=== PATIENT | female | born 1945 | race Caucasian/White ===

== ENCOUNTER 2025-07-20 11:41 | Outpatient (REF) | payer MEDICARE, OTHER, SELFPAY ==
--- NOTE | ~2025-07-20 | XR_ITS ---
EXAMINATION: XR HAND, LEFT CLINICAL INFORMATION: M79.642 - Pain in left hand COMPARISON: None available. TECHNIQUE: PA, lateral, and oblique views of the left hand. FINDINGS: There is mild narrowing of DIP joints with small marginal osteophytes involving the second and third digits, IP joint of the thumb, and first CMC joint. 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 Vague linear lucency in the radial base of the second metacarpal is probably related to trabecular pattern. There is an oblique fracture involving the middle third diaphysis of the fourth metacarpal. There is a small simple. Lucency through the palmar cortex of the third metacarpal diaphysis is probably a vascular channel. XR/XR hand LT min 3V IMPRESSION: There is an acute oblique fracture involving the proximal metaphysis and diaphysis of the fourth metacarpal. Electronically signed by: Pedro Patel MD 07/20/2025 01:01 PM EST
== END 2025-07-20 11:42 | disposition home or self-care (01) ==
LOC: HO.HOSX 11:41
PROVIDERS: Visit Provider Orthopaedic Surgery
DX: S62.325A Displaced fracture of shaft of fourth metacarpal bone, left hand, initial encounter for closed fracture (principal); S42.001A Fracture of unspecified part of right clavicle, initial encounter for closed fracture; W10.9XXA Fall (on) (from) unspecified stairs and steps, initial encounter; Y93.9 Activity, unspecified; Y92.89 Other specified places as the place of occurrence of the external cause; Y99.9 Unspecified external cause status
CPT/HCPCS: 26600; 73130; 99202

== ENCOUNTER 2025-07-20 12:30 | Outpatient (AMB) | payer MEDICARE, OTHER, SELFPAY ==
--- NOTE | 2025-07-20 12:49 | A.OFFVIS_ITS ---
Vital Signs 07/20/25 12:51 Height 5 ft 5.5 in Weight 134 lb BMI 22.0 Intake Visit Reasons: ED FU- Left hand (pinky and ring finger fracture) Intake Note: Delores is a 79 year old Left hand dominant male who presents today as a New Patient with complaints of Left Hand Pain. Patient reports that she had a fall on 07/18/26 - she fell down her cellar stairs. After the fall she was seen at [facility] in [place] due to concerns of Left Hand Pain. She was placed in a velcro wrist splint for a Left 4th Metacarpal Fracture. She also has a Right Clavicle Fracture but does not have an appointment booked for this yet. Allergies No Known Allergies (No Known Allergies*) Allergy (Unverified 07/20/25 12:57) HPI HPI ED FU- Left hand (pinky and ring finger fracture): Details: delores is a 79 year old left hand dominant woman who presents for a left hand fracture, S/P fall, DOI: 07/18/25. She was seen at [facility] in [place] and given a velcro wrist splint for a 4th metacarpal fracture. She complains of only mild pain in her left hand with ROM. She says she also has a right clavicle fracture and will be seen later this week by ADELFO Vela for this. [facility] Surgical History (Updated 07/20/25 @ 13:03 by Cintia Stone [facility]) History of spinal surgery Hx of cholecystectomy History of bunionectomy History of nasal surgery History of tubal ligation Hx of appendectomy History of cataract surgery Review of Systems Const All systems reviewed & are unremarkable except as noted in HPI and below Physical Exam Vital Signs: BMI result Body Mass Index 22.0 Const General: cooperative, healthy appearing and no acute distress Orientation/consciousness: patient oriented x3 HEENT Head: Yes normocephalic and Yes atraumatic Eyes EOM: EOMs intact bilaterally Resp Effort & Inspection: normal respiratory effort and able to speak in complete sentences Cardio Jugular venous distension: no JVD Skin General skin exam: turgor normal Rashes: no rashes Neuro General: patient oriented x3 Extrem Other: Evaluation of Left Upper Extremity: The patient is alert, oriented, and in no acute distress Neuro: Median, Ulnar, Radial nerves motor and sensory intact and sensation is normal to the tips of all digits Vascular: Cap refill brisk ROM: With encouragement she can make a fist and extend all her digits no rotational mal-alignment Skin: No lacerations or abrasions. General: No Erythema or evidence of infection. Mild-moderate swelling Dorsal & volar ecchymosis Radiographs: 3 views of the left hand were taken and viewed by me today in clinic. They show an oblique 4th metacarpal shaft fracture with a small amount of shortening. Psych Appearance: grossly normal Affect: normal affect Attitude: cooperative Office Procedures AMB Fracture Care Details: Fracture care metacarpal fracture 20238 Fracture Billing Code: Fracture Billing Code Assessment & Plan Assessment & Plan (1) Fracture of shaft of fourth metacarpal bone of left hand: Code(s): S62.325A - Displaced fracture of shaft of fourth metacarpal bone, left hand, initial encounter for closed fracture Category: Medical (2) Fracture of right clavicle: Code(s): S42.001A - Fracture of unspecified part of right clavicle, initial encounter for closed fracture Category: Medical Plan Assessment & Plan: 1. Left 4th metacarpal shaft fracture From a fall, DOI: 07/18/25 I educated her about this condition I discussed operative and non-operative treatment options We will manage this conservatively, and she is in agreement I discussed activity modifications, she is to lift nothing heavier than a cellphone for the next 6 weeks. They should also avoid any heavy impact activities, falls, or sports activities for the next 8 weeks She will perform gentle ROM exercises at home, while in her splint She will continue to wear her velcro splint like a cast except for showering for the next 3-4 weeks. She will yamilet-tape her middle & ring fingers together for the next 3-4 weeks She will follow up in 3-4 weeks, with X-rays, 3V L hand, OOP 2. Right clavicle fracture From a fall, DOI: 07/18/25 She is scheduled to be seen by ADELFO Vela on 07/22/25 for this Scribed for Cydney Choi MD by Mynro Francois, medical staff credentialing coordinator, on 07/20/25 at 1:20 PM, EST. Orders: Orders XR hand LT min 3V Today M79.642 - Pain in left hand Coding Level of Care Code New Pt Level 4 (58443) Diagnoses Fracture of shaft of fourth metacarpal bone of left hand S62.325A Fracture of right clavicle S42.001A CPT Codes Fracture Care - Fracture Billing Code: Fracture Billing Code ([id number])
[2025-07-20 12:51] VITALS: BMI 22.0
--- OUTSIDE RECORDS SUMMARY | 2025-07-20 16:19 | XMS_ITS ---
Author Name [facility] Organization Unknown Encounters Encounter Type Encounter Reason Primary Diagnosis Location Date Ambulatory [facility] 06/02/2024 Care Team Organization Name Specialty Phone Email Start Date End Da te [facility] Diane Carlisle Primary Care 01/15/2025 [facility] 2024 [facility] Vanda Ardon Primary Care 02/20/2024 [facility] Vanda Ardon Primary Care 12/10/2022
--- OUTSIDE RECORDS SUMMARY | 2025-07-20 16:19 | XMS_ITS | Patient Health Record ---
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 Occupation: retired Section Notes: Nonsmoker x 2 months; no sig . alcohol Problems Problem Type SNOMED Code ICD Code Onset Dates Problem Status W/U Status Risk Notes Problem Colon cancer screening (295622344) Colon cancer screening (V76.51) Active confirmed Problem Chronic antral gastritis (16900019) Chronic antral gastritis (535.10) Active confirmed Plan Of Treatment Future Test Test Name Order Date COLONOSCOPY 08/07/2012 Insurance Providers Payer Name Payer Address Payer Phone Subscriber Number Group Number Insured Name Patient Relationship to Insured Coverage Start Date Coverage End Date MEDICARE OF [place] [address] [place] [address] [id number] EVA CORDON Self - patient is the insured [facility] [address] [place] [address] [phone] [id number] EVA CORDON Self - patient is the insured Medical (General) History Medical History History ICD Code 5-3-2009 upperendoscopy-inte stinal metaplasia, but no adenomatous changes as had been seen in 1997; 2009 biopsies neg. for Hpylori gastritis with H. pylori-s/p antibiotic treatment hiatal hernia Denies NC,DM,CVA,Lung disease,renal dise ase HTN Hyperlipidemia Surgical History Surgery Date(Month/Year) uterine suspension appendectomy tubal ligation cholecystectomy L3 disc surgery
--- OUTSIDE RECORDS SUMMARY | 2025-07-20 16:19 | XMS_ITS | Patient Health Record ---
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 Name Role Phone LIAM ARDON Primary Care Provider MYRON MCCARTY Unavailable [phone] Allergies Allergen (clinical drug ingredient) Drug/Non Drug Allergy documented on EMR Reaction Allergy Type Onset Date Status Ground Mold (uncoded) Unknown Allergy Active Results Component Value Reference Range Flag Notes Vitamin [id number] Reviewed date:06/22/2025 09:47:38 AM Interpretation: Performing Lab:[facility], [address] [facility], Phone - [phone], Director - Leilani Notes/Report: Vitamin B12 441 644-4797 pg/mL Vitamin D, [id number] Reviewed date:06/22/2025 09:47:38 AM Interpretation: Performing Lab:[facility] [place], [address] [facility], [place], Phone - [phone], Director - Leilani Notes/Report: Vitamin D, 25-Hydroxy 66.7 30.0-100.0 ng/mL Vitamin D deficiency has been defined by the [employer] of Medicine and an Endocrine Society practice guideline as a level of serum 25-OH vitamin D less than 20 ng/mL (1,2). The Endocrine Society went on to further define vitamin D insufficiency as a level between 21 and 29 ng/mL (2). 1. IOM ([employer] of Medicine). 2010. Dietary reference intakes for calcium and D. [place]: The National Academies Press. 2. Sidney LIN, Caesar STONER, Paloma GREEN, et al. Evaluation, treatment, and prevention of vitamin D deficiency: an Endocrine Society clinical practice guideline. JCEM. 2010; 96(7):1911-30. Hemoglobin [id number] Reviewed date:06/22/2025 09:47:38 AM Interpretation: Performing Lab:[facility] [place], [address] [place] [address], Phone - [phone], Director - Leilani Notes/Report: Hemoglobin A1c 5.8 4.8-5.6 % H . Prediabetes: 5.7 - 6.4 Diabetes: >6.4 Glycemic control for adults with diabetes: <7.0 Urinalysis, Complete-[id number] Reviewed date:06/22/2025 09:47:38 AM Interpretation: Performing Lab:[facility] [place], [address] [place] [address], Phone - [phone], Director - Leilani Notes/Report: Specific [place] 1.022 1.005-1.030 pH 5.5 5.0-7.5 Urine-Color Yellow Yellow Appearance Clear Clear WBC Esterase 2+ Negative A Protein Negative Negative/Trace Glucose Negative Negative Ketones Negative Negative Occult Blood Negative Negative Bilirubin Negative Negative Urobilinogen,Semi-Qn 1.0 0.2-1.0 mg/dL Nitrite, Urine Negative Negative Microscopic Examination See below: M icroscopic was indicated and was performed. WBC 0-5 0 - 5 /hpf RBC 0-2 0 - 2 /hpf Epithelial Cells (non renal) 0-10 0 - 10 /hpf Casts None seen None seen /lpf Bacteria None seen None seen/Few CBC With Differential/Platel et-[id number] Reviewed date:06/22/2025 09:47:38 AM Interpretation: Performing Lab:[facility] [place], [address] [place] [address], [place], Phone - [phone], Director - Leilani Notes/Report: WBC 5.7 3.4-10.8 x10E3/uL RBC 4.35 3.77-5.28 x10E6/uL Hemoglobin 13.5 11.1-15.9 g/dL Hematocrit 41.4 34.0-46.6 % MCV 95 79-97 fL MCH 31.0 26.6-33.0 pg MCHC 32.6 31.5-35.7 g/dL RDW 12.1 11.7-15.4 % Platelets 183 150-450 x10E3/uL Neutrophils 69 Not Estab. % Lymphs 21 Not Estab. % Monocytes 7 Not Estab. % Eos 2 Not Estab. % Basos 1 Not Estab. % Neutrophils (Absolute) 4.0 1.4-7.0 x10E3/uL Lymphs (Absolute) 1.2 0.7-3.1 x10E3/uL Monocytes(Absolute) 0.4 0.1-0.9 x10E3/uL Eos (Absolute) 0.1 0.0-0.4 x10E3/uL Baso (Absolute) 0.1 0.0-0.2 x10E3/uL Immature Granulocytes 0 Not Estab. % Immature Grans (Abs) 0.0 0.0-0.1 x10E3/uL Lipid Panel-[id number] Reviewed date:06/22/2025 09:47:38 AM Interpretation: Performing Lab:[facility], [address] [place] [address], Phone - [phone], Director - MDJoy Notes/Report: Cholesterol, Total 164 100-199 mg/dL Triglycerides 80 0-149 mg/dL HDL Cholesterol 67 >39 mg/dL VLDL Cholesterol Pradip 15 5-40 mg/dL LDL Chol Calc ([facility]) 82 0-99 mg/dL Comp. Metabolic Panel (14)-3 [id number] Reviewed date:06/22/2025 09:47:38 AM Interpretation: Performing Lab:[facility], [address] [facility], Phone - [phone], Director - MDAlley Notes/Report: Glucose 109 70-99 mg/dL H BUN 15 8-27 mg/dL Creatinine 0.65 0.57-1.00 mg/dL eGFR 90 >59 mL/min/1.73 BUN/Creatinine Ratio 23 12-28 Sodium 141 134-144 mmol/L Potassium 4.0 3.5-5.2 mmol/L Chloride 103 96-106 mmol/L Carbon Dioxide, Total 27 20-29 mmol/L Calcium 9.5 8.7-10.3 mg/dL Protein, Total 6.5 6.0-8.5 g/dL Albumin 4.5 3.8-4.8 g/dL Globulin, Total 2.0 1.5-4.5 g/dL Bilirubin, Total 1.0 0.0-1.2 mg/dL Alkaline Phosphatase 65 49-135 IU/L AST (SGOT) 21 0-40 IU/L ALT (SGPT) 19 0-32 IU/L Reason For Referral No Information Medications Medication SIG (Take, Route, Frequency, Duration) Notes Start Date End Date Status Aris [place] 100-62.5-25 MCG/INH Aerosol Powder Breath Activated 1 puff Inhalation Once a day; Duration: 30 days Active Triamterene-HCTZ 37.5-25 MG Capsule TAKE 1 CAPSULE BY MOUTH EVERY DAY IN THE MORNING FOR 90 DAYS; Duration: 90 Active Vitamin C 1000 MG Tablet 2 tabs Orally daily Active Albuterol Sulfate HFA 108 (90 Base) MCG/ACT Aerosol Solution 2 PUFFNEEDED INHALATION EVERY 4 HRSNEEDED SHORTNESS OF BREATH 30 DAYS Inhalation every 4 hrs; Duration: 30 days Active Flonase 50 MCG/ACT Suspension 2 sprays Nasally Once a day; Duration: 90 days Active Omeprazole 20 MG Capsule Delayed Release TAKE 1 CAPSULE BY MOUTH EVERY DAY FOR 90 DAYS; Duration: 90 Active Atorvastatin Calcium 40 MG Tablet TAKE 1 TABLET BY MOUTH EVERY DAY; Duration: 90 Active Vitamin D (Ergocalciferol) 18161 UNIT Capsule 2 capsule Orally daily 10,000 Active Multi Complete - Capsule Orally Active Immunizations Vaccine Route Administration Date Status Comme nts Flu vaccine no Preserv 3 and > IM Intramuscular 06/04/2018 Administered influenza IM Intramuscular 05/09/2021 Administered Moderna Covid-19 Vaccine Unknown 10/04/2020 Administere d Moderna Covid-19 Vaccine IM Intramuscular 10/29/2020 Admin istered Social History Tobacco Use: Social History Observation Description Date Details (start date - stop date) Current Smoker NA - NA Social History Tobacco Use: Social Info Question Answer Notes Tobacco Use/Smoking Are you a 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 How often do you smoke cigarettes? every day Section Notes: patient is a 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 and refusing to quit smoking patient is a 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 and refusing to quit smoking patient is a 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 and refusing to quit smoking patient is a 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 and refusing to quit smoking patient is a 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 and refusing to quit smoking patient is a 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 and refusing to quit smoking patient is a 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 and refusing to quit smoking patient is a 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 and refusing to quit smoking patient is a 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 and refusing to quit smoking patient is a 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 and refusing to quit smoking patient is a 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 and refusing to quit smoking patient is a 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 and refusing to quit smoking patient is a 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 and refusing to quit smoking patient is a 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 and refusing to quit smoking patient is a 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 and refusing to quit smoking Tob: 1 PPD ETOH: None 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 and refusing to quit smoking Tob: 1 PPD ETOH: None 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 and refusing to quit smoking Tob: 1 PPD ETOH: None Outpatient Clerk of Criminal Justice Resides with 52 year old son (disabled due to mental illness) patient is a 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 and refusing to quit smoking Tob: 1 PPD ETOH: None Outpatient Clerk of Criminal Justice Resides with 52 year old son (disabled due to mental illness) patient is a 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 and refusing to quit smoking Tob: 1 PPD ETOH: None [facility] of Criminal Justice Resides with 52 year old son (disabled due to mental illness) patient is a 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 and refusing to quit smoking patient is a 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 and refusing to quit smoking patient is a 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 and refusing to quit smoking Tob: 1 PPD ETOH: None 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 and refusing to quit smoking Tob: 1 PPD ETOH: None Outpatient Clerk of Criminal Justice Resides with 52 year old son (disabled due to mental illness) patient is a 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 and refusing to quit smoking patient is a 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 and refusing to quit smoking Problems Problem Type SNOMED Code ICD Code Onset Dates Problem Status W/U Status Risk Notes Problem Vitamin B>12< deficiency anaemia (35733623) Vitamin B12 deficiency anemia, unspecified (D51.9) Active confirmed Problem Vitamin D deficiency (74516603) Vitamin D deficiency, unspecified (E55.9) Active confirmed Problem Hyperlipidemia (88257278) Hyperlipidemia, unspecified (E78.5) Active confirmed Problem Tobacco user (057519441) Nicotine dependence, cigarettes, uncomplicated (F17.210) Active confirmed Problem Essential hypertensi on (38688721) Essential (primary) hypertension (I10) Active confirmed Problem Atherosclerotic hear t disease of [place] coronary artery without angina pectoris (413418978303760) Atherosclerotic heart disease of [place] coronary artery without angina pectoris (I25.10) Active confirmed Problem Gastro-esophageal reflux disease with esophagitis (523345344) Gastro-esophageal reflux disease with esophagitis (K21.0) Active confirmed Problem Dysuria (17011744) Dysuria (R30.0) Active confi rmed Problem Adult health examination (431550958) Encounter for general adult medical examination without abnormal findings (Z00.00) Active confirmed Problem Pure hypercholesterolemia (708293023) Pure hypercholesterole daniel, unspecified (E78.00) Active confirmed Problem Prediabetes (761841557) Prediabetes (R73.03) Active confirmed Problem Acute exacerbation o f chronic obstructive airways disease (322198186) Chronic obstructive pulmonary disease with acute exacerbation (J44.1) Active confirmed Problem Hyperlipidaemia (10500261) Hyperlipidemia, unspecified hyperlipidemia type (E78.5) Active confirmed Problem Hypothyroidism (16496800) Hypothyroidism, unspecified type (E03.9) Active confirmed Problem Dyspnea (099749903) SOB (shortne ss of breath) (R06.02) Active confirmed Problem Vitamin D deficiency (63883514) Vitamin D deficiency (E55.9) Active confirmed Problem Type II diabetes mellitus without complication (364449527) Type 2 diabetes mellitus without complication, unspecified whether long term acute care registered nurse insulin use (E11.9) Active confirmed Problem Smoker (37983885) Smoker (F17.200) Active confi rmed Problem COPD - Chronic obstructive pulmonary disease (09610690) Chronic obstructive pulmonary disease, unspecified COPD type (J44.9) Active confirmed Problem Age-related osteoporosis (705803978) Osteoporosis without current pathological fracture, unspecified osteoporosis type (M81.0) Active confirmed Problem Gastroesophageal reflux disease (078766497) GERD without esophagitis (K21.9) Active confirmed Problem Vitamin D deficiency (39728769) Vitamin D3 deficiency (E55.9) Active confirmed Problem Hyperlipidemia (96519877) Hyperlipidemia (E78.5) Active confirmed Vital Signs Heart Rate 80 /min 01/18/2025 Oximetry 92 % 01/18/2025 Blood pressure diastolic 64 mm Hg 01/18/2025 Height 64 in 01/18/2025 Blood pressure systolic 112 mm Hg 01/18/2025 Weight 131.8 lbs 01/18/2025 BMI 22.62 kg/m2 01/18/2025 Encounters Encounter Location Date Provider Diagnosis [facility] [address] [place] [address] 10/05/2024 MYRON MCCARTY Essential (primary) hypertension I10 ; Pneumonia due to infectious organism, unspecified laterality, unspecified part of lung J18.9 ; Pure hypercholesterolemia, unspecified E78.00 ; Chronic obstructive pulmonary disease with acute exacerbation J44.1 ; Atherosclerotic heart disease of [place] coronary artery without angina pectoris I25.10 ; Nicotine dependence, cigarettes, uncomplicated F17.210 and SOB (shortness of breath) R06.[address] [facility] [address] [place] [address] 01/18/2025 YMRON MCCARTY Essential (primary) hypertension I10 ; Chronic obstructive pulmonary disease with acute exacerbation J44.1 ; Atherosclerotic heart disease of [place] coronary artery without angina pectoris I25.10 ; Nicotine dependence, cigarettes, uncomplicated F17.210 and Encounter for examination of blood pressure without abnormal findings Z01.30 [facility] [address] [place] [address] 11/02/2024 MYRON MCCARTY [facility] [address] [place] [address] 12/14/2024 LIAM ARDON [facility] [address] [place] [address] 12/14/2024 MYRON MCCARTY [facility] [address] [place] [address] 07/19/2025 LIAM ARDON [facility] [address] [place] [address] 07/19/2025 MYRON MCCARTY Assessments Encounter Date Diagnosis (ICD Code) Assessment Notes Treatment Notes Treatment Clinical Notes Section Notes 10/05/2024 Essential (primary) hypertension (ICD-10 - I10) # Recent PNA. Diagnosed in Aug 2024, will obtain follow up CXR to ensure clearance # Recent Norovirus: Stomach still is off, taking probiotics. Check BMP. #COPD: Patient is a 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 and has a history of COPD. She is currently prescribed Trelegy for daily maintenance and an albuterol emergency inhaler. She has not been using her Trelegy daily because it is too expensive asking for in office refiils if possible, so she relies on her albuterol inhaler. She uses her albuterol inhaler on average 3 times per week moslty with activity. She also feels that her albuterol inhaler does not work efficiently and she often wastes puffs trying to prime it so she started cleaning the device and notices improvement. She denies any shortness of breath, chest pain, or dizziness. #Hypertension: She is currently prescribed triamterene-HCTZ for blood pressure control. She reports that she takes her medication consistently and experienes no side effects. She should continue to take her medication as prescribed. #Hyperlipidemia: Patient has a history of hyperlipidemia. She is currently prescribed atorvastatin for cholesterol control. Most recent bloodwork was obtained on 09/11/21, at which time she had vey mildly elevated LDL. She was unable to obtian bloodwork before today's appointment because she misplaced her lab slip. She was given new orders and will receive bloodwork for review this afternoon after her appointment. # Tobacco dependence. contiues to smoke 1/2 ppd. no interest in quitting #preDM: Hba1c now 5.5 Case discussed with collaborating physician Yaz Ardon who reviewed the assessment and plan. Chart, medications, labs, vital signs reviewed. Dictation was accomplished with the use of [employer] voice recognition software, prone to medical misidentifications and grammatical errors. This is unintentional and the practitioner does try to identify and correct these, but some could still be present. Please do not hesitate to contact practitioner for clarification. All quetsions answered to patients satisfaction. Patient verbalized understanding of diagnosis and treatments explained. To call sooner prior to next visit it any questions/concerns arise. 10/05/2024 Pneumonia due to infectious organism, unspecified laterality, unspecified part of lung (ICD-10 - J18.9) # Recent PNA. Diagnosed in Aug 2024, will obtain follow up CXR to ensure clearance # Recent Norovirus: Stomach still is off, taking probiotics. Check BMP. #COPD: Patient is a 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 and has a history of COPD. She is currently prescribed Trelegy for daily maintenance and an albuterol emergency inhaler. She has not been using her Trelegy daily because it is too expensive asking for in office refiils if possible, so she relies on her albuterol inhaler. She uses her albuterol inhaler on average 3 times per week moslty with activity. She also feels that her albuterol inhaler does not work efficiently and she often wastes puffs trying to prime it so she started cleaning the device and notices improvement. She denies any shortness of breath, chest pain, or dizziness. #Hypertension: She is currently prescribed triamterene-HCTZ for blood pressure control. She reports that she takes her medication consistently and experienes no side effects. She should continue to take her medication as prescribed. #Hyperlipidemia: Patient has a history of hyperlipidemia. She is currently prescribed atorvastatin for cholesterol control. Most recent bloodwork was obtained on 09/11/21, at which time she had vey mildly elevated LDL. She was unable to obtian bloodwork before today's appointment because she misplaced her lab slip. She was given new orders and will receive bloodwork for review this afternoon after her appointment. # Tobacco dependence. contiues to smoke 1/2 ppd. no interest in quitting #preDM: Hba1c now 5.5 Case discussed with collaborating physician Yaz Ardon who reviewed the assessment and plan. Chart, medications, labs, vital signs reviewed. Dictation was accomplished with the use of [employer] voice recognition software, prone to medical misidentifications and grammatical errors. This is unintentional and the practitioner does try to identify and correct these, but some could still be present. Please do not hesitate to contact practitioner for clarification. All quetsions answered to patients satisfaction. Patient verbalized understanding of diagnosis and treatments explained. To call sooner prior to next visit it any questions/concerns arise. 01/18/2025 Essential (primary) hypertension (ICD-10 - I10) #COPD: Patient is a 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 and has a history of COPD. She is currently prescribed Trelegy for daily maintenance and an albuterol emergency inhaler. She has not been using her Trelegy daily because it is too expensive asking for in office refiils if possible, so she relies on her albuterol inhaler. She uses her albuterol inhaler on average 3 times per week moslty with activity. She also feels that her albuterol inhaler does not work efficiently and she often wastes puffs trying to prime it so she started cleaning the device and notices improvement. She denies any shortness of breath, chest pain, or dizziness. #Hypertension: She is currently prescribed triamterene-HCTZ for blood pressure control. She reports that she takes her medication consistently and experienes no side effects. She should continue to take her medication as prescribed. #Hyperlipidemia: Patient has a history of hyperlipidemia. She is currently prescribed atorvastatin for cholesterol control. Most recent bloodwork was obtained on 09/11/21, at which time she had vey mildly elevated LDL. She was unable to obtian bloodwork before today's appointment because she misplaced her lab slip. She was given new orders and will receive bloodwork for review this afternoon after her appointment. # Tobacco dependence. contiues to smoke 1/2 ppd. no interest in quitting #preDM: Hba1c now 5.5 Case discussed with collaborating physician Yaz Ardon who reviewed the assessment and plan. Chart, medications, labs, vital signs reviewed. Dictation was accomplished with the use of [employer] voice recognition software, prone to medical misidentifications and grammatical errors. This is unintentional and the practitioner does try to identify and correct these, but some could still be present. Please do not hesitate to contact practitioner for clarification. All quetsions answered to patients satisfaction. Patient verbalized understanding of diagnosis and treatments explained. To call sooner prior to next visit it any questions/concerns arise. 01/18/2025 Chronic obstructive pulmonary disease with acute exacerbation (ICD-10 - J44.1) #COPD: Patient is a 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 and has a history of COPD. She is currently prescribed Trelegy for daily maintenance and an albuterol emergency inhaler. She has not been using her Trelegy daily because it is too expensive asking for in office refiils if possible, so she relies on her albuterol inhaler. She uses her albuterol inhaler on average 3 times per week moslty with activity. She also feels that her albuterol inhaler does not work efficiently and she often wastes puffs trying to prime it so she started cleaning the device and notices improvement. She denies any shortness of breath, chest pain, or dizziness. #Hypertension: She is currently prescribed triamterene-HCTZ for blood pressure control. She reports that she takes her medication consistently and experienes no side effects. She should continue to take her medication as prescribed. #Hyperlipidemia: Patient has a history of hyperlipidemia. She is currently prescribed atorvastatin for cholesterol control. Most recent bloodwork was obtained on 09/11/21, at which time she had vey mildly elevated LDL. She was unable to obtian bloodwork before today's appointment because she misplaced her lab slip. She was given new orders and will receive bloodwork for review this afternoon after her appointment. # Tobacco dependence. contiues to smoke 1/2 ppd. no interest in quitting #preDM: Hba1c now 5.5 Case discussed with collaborating physician Yaz Ardon who reviewed the assessment and plan. Chart, medications, labs, vital signs reviewed. Dictation was accomplished with the use of [employer] voice recognition software, prone to medical misidentifications and grammatical errors. This is unintentional and the practitioner does try to identify and correct these, but some could still be present. Please do not hesitate to contact practitioner for clarification. All quetsions answered to patients satisfaction. Patient verbalized understanding of diagnosis and treatments explained. To call sooner prior to next visit it any questions/concerns arise. 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 She is currently prescribed Trelegy for daily maintenance and an albuterol emergency inhaler. She has not been using her Trelegy daily because it is too expensive asking for in office refiils if possible, so she relies on her albuterol inhaler. She uses her albuterol inhaler on average 3 times per week moslty with activity. She also feels that her albuterol inhaler does not work efficiently and she often wastes puffs trying to prime it so she started cleaning the device and notices improvement. She denies any shortness of breath, chest pain, or dizziness. #Hypertension: She is currently prescribed triamterene-HCTZ for blood pressure control. She reports that she takes her medication consistently and experienes no side effects. She should continue to take her medication as prescribed. #Hyperlipidemia: Patient has a history of hyperlipidemia. She is currently prescribed atorvastatin for cholesterol control. Most recent bloodwork was obtained on 09/11/21, at which time she had vey mildly elevated LDL. She was unable to obtian bloodwork before today's appointment because she misplaced her lab slip. She was given new orders and will receive bloodwork for review this afternoon after her appointment. # Tobacco dependence. contiues to smoke 1/2 ppd. no interest in quitting #preDM: Hba1c now 5.5 Case discussed with collaborating physician Yaz Ardon who reviewed the assessment and plan. Chart, medications, labs, vital signs reviewed. Dictation was accomplished with the use of [employer] voice recognition software, prone to medical misidentifications and grammatical errors. This is unintentional and the practitioner does try to identify and correct these, but some could still be present. Please do not hesitate to contact practitioner for clarification. All quetsions answered to patients satisfaction. Patient verbalized understanding of diagnosis and treatments explained. To call sooner prior to next visit it any questions/concerns arise. 10/05/2024 Pure hypercholesterolem ia, unspecified (ICD-10 - E78.00) # Recent PNA. Diagnosed in Aug 2024, will obtain follow up CXR to ensure clearance # Recent Norovirus: Stomach still is off, taking probiotics. Check BMP. #COPD: Patient is a 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 and has a history of COPD. She is currently prescribed Trelegy for daily maintenance and an albuterol emergency inhaler. She has not been using her Trelegy daily because it is too expensive asking for in office refiils if possible, so she relies on her albuterol inhaler. She uses her albuterol inhaler on average 3 times per week moslty with activity. She also feels that her albuterol inhaler does not work efficiently and she often wastes puffs trying to prime it so she started cleaning the device and notices improvement. She denies any shortness of breath, chest pain, or dizziness. #Hypertension: She is currently prescribed triamterene-HCTZ for blood pressure control. She reports that she takes her medication consistently and experienes no side effects. She should continue to take her medication as prescribed. #Hyperlipidemia: Patient has a history of hyperlipidemia. She is currently prescribed atorvastatin for cholesterol control. Most recent bloodwork was obtained on 09/11/21, at which time she had vey mildly elevated LDL. She was unable to obtian bloodwork before today's appointment because she misplaced her lab slip. She was given new orders and will receive bloodwork for review this afternoon after her appointment. # Tobacco dependence. contiues to smoke 1/2 ppd. no interest in quitting #preDM: Hba1c now 5.5 Case discussed with collaborating physician Yaz Ardon who reviewed the assessment and plan. Chart, medications, labs, vital signs reviewed. Dictation was accomplished with the use of [employer] voice recognition software, prone to medical misidentifications and grammatical errors. This is unintentional and the practitioner does try to identify and correct these, but some could still be present. Please do not hesitate to contact practitioner for clarification. All quetsions answered to patients satisfaction. Patient verbalized understanding of diagnosis and treatments explained. To call sooner prior to next visit it any questions/concerns arise. 10/05/2024 Chronic obstructive pulmonary disease with acute exacerbation (ICD-10 - J44.1) # Recent PNA. Diagnosed in Aug 2024, will obtain follow up CXR to ensure clearance # Recent Norovirus: Stomach still is off, taking probiotics. Check BMP. #COPD: Patient is a 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 and has a history of COPD. She is currently prescribed Trelegy for daily maintenance and an albuterol emergency inhaler. She has not been using her Trelegy daily because it is too expensive asking for in office refiils if possible, so she relies on her albuterol inhaler. She uses her albuterol inhaler on average 3 times per week moslty with activity. She also feels that her albuterol inhaler does not work efficiently and she often wastes puffs trying to prime it so she started cleaning the device and notices improvement. She denies any shortness of breath, chest pain, or dizziness. #Hypertension: She is currently prescribed triamterene-HCTZ for blood pressure control. She reports that she takes her medication consistently and experienes no side effects. She should continue to take her medication as prescribed. #Hyperlipidemia: Patient has a history of hyperlipidemia. She is currently prescribed atorvastatin for cholesterol control. Most recent bloodwork was obtained on 09/11/21, at which time she had vey mildly elevated LDL. She was unable to obtian bloodwork before today's appointment because she misplaced her lab slip. She was given new orders and will receive bloodwork for review this afternoon after her appointment. # Tobacco dependence. contiues to smoke 1/2 ppd. no interest in quitting #preDM: Hba1c now 5.5 Case discussed with collaborating physician Yaz Ardon who reviewed the assessment and plan. Chart, medications, labs, vital signs reviewed. Dictation was accomplished with the use of [employer] voice recognition software, prone to medical misidentifications and grammatical errors. This is unintentional and the practitioner does try to identify and correct these, but some could still be present. Please do not hesitate to contact practitioner for clarification. All quetsions answered to patients satisfaction. Patient verbalized understanding of diagnosis and treatments explained. To call sooner prior to next visit it any questions/concerns arise. 01/18/2025 Nicotine dependence, cigarettes, uncomplicated (ICD-10 - F17.210) #COPD: Patient is a 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 and has a history of COPD. She is currently prescribed Trelegy for daily maintenance and an albuterol emergency inhaler. She has not been using her Trelegy daily because it is too expensive asking for in office refiils if possible, so she relies on her albuterol inhaler. She uses her albuterol inhaler on average 3 times per week moslty with activity. She also feels that her albuterol inhaler does not work efficiently and she often wastes puffs trying to prime it so she started cleaning the device and notices improvement. She denies any shortness of breath, chest pain, or dizziness. #Hypertension: She is currently prescribed triamterene-HCTZ for blood pressure control. She reports that she takes her medication consistently and experienes no side effects. She should continue to take her medication as prescribed. #Hyperlipidemia: Patient has a history of hyperlipidemia. She is currently prescribed atorvastatin for cholesterol control. Most recent bloodwork was obtained on 09/11/21, at which time she had vey mildly elevated LDL. She was unable to obtian bloodwork before today's appointment because she misplaced her lab slip. She was given new orders and will receive bloodwork for review this afternoon after her appointment. # Tobacco dependence. contiues to smoke 1/2 ppd. no interest in quitting #preDM: Hba1c now 5.5 Case discussed with collaborating physician Yaz Ardon who reviewed the assessment and plan. Chart, medications, labs, vital signs reviewed. Dictation was accomplished with the use of [employer] voice recognition software, prone to medical misidentifications and grammatical errors. This is unintentional and the practitioner does try to identify and correct these, but some could still be present. Please do not hesitate to contact practitioner for clarification. All quetsions answered to patients satisfaction. Patient verbalized understanding of diagnosis and treatments explained. To call sooner prior to next visit it any questions/concerns arise. 10/05/2024 Atherosclerotic heart disease of [place] coronary artery without angina pectoris (ICD-10 - I25.10) # Recent PNA. Diagnosed in Aug 2024, will obtain follow up CXR to ensure clearance # Recent Norovirus: Stomach still is off, taking probiotics. Check BMP. #COPD: Patient is a 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 and has a history of COPD. She is currently prescribed Trelegy for daily maintenance and an albuterol emergency inhaler. She has not been using her Trelegy daily because it is too expensive asking for in office refiils if possible, so she relies on her albuterol inhaler. She uses her albuterol inhaler on average 3 times per week moslty with activity. She also feels that her albuterol inhaler does not work efficiently and she often wastes puffs trying to prime it so she started cleaning the device and notices improvement. She denies any shortness of breath, chest pain, or dizziness. #Hypertension: She is currently prescribed triamterene-HCTZ for blood pressure control. She reports that she takes her medication consistently and experienes no side effects. She should continue to take her medication as prescribed. #Hyperlipidemia: Patient has a history of hyperlipidemia. She is currently prescribed atorvastatin for cholesterol control. Most recent bloodwork was obtained on 09/11/21, at which time she had vey mildly elevated LDL. She was unable to obtian bloodwork before today's appointment because she misplaced her lab slip. She was given new orders and will receive bloodwork for review this afternoon after her appointment. # Tobacco dependence. contiues to smoke 1/2 ppd. no interest in quitting #preDM: Hba1c now 5.5 Case discussed with collaborating physician Yaz Ardon who reviewed the assessment and plan. Chart, medications, labs, vital signs reviewed. Dictation was accomplished with the use of [employer] voice recognition software, prone to medical misidentifications and grammatical errors. This is unintentional and the practitioner does try to identify and correct these, but some could still be present. Please do not hesitate to contact practitioner for clarification. All quetsions answered to patients satisfaction. Patient verbalized understanding of diagnosis and treatments explained. To call sooner prior to next visit it any questions/concerns arise. 01/18/2025 Encounter for examination of blood pressure without abnormal findings (ICD-10 - Z01.30) #COPD: Patient is a 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 and has a history of COPD. She is currently prescribed Trelegy for daily maintenance and an albuterol emergency inhaler. She has not been using her Trelegy daily because it is too expensive asking for in office refiils if possible, so she relies on her albuterol inhaler. She uses her albuterol inhaler on average 3 times per week moslty with activity. She also feels that her albuterol inhaler does not work efficiently and she often wastes puffs trying to prime it so she started cleaning the device and notices improvement. She denies any shortness of breath, chest pain, or dizziness. #Hypertension: She is currently prescribed triamterene-HCTZ for blood pressure control. She reports that she takes her medication consistently and experienes no side effects. She should continue to take her medication as prescribed. #Hyperlipidemia: Patient has a history of hyperlipidemia. She is currently prescribed atorvastatin for cholesterol control. Most recent bloodwork was obtained on 09/11/21, at which time she had vey mildly elevated LDL. She was unable to obtian bloodwork before today's appointment because she misplaced her lab slip. She was given new orders and will receive bloodwork for review this afternoon after her appointment. # Tobacco dependence. contiues to smoke 1/2 ppd. no interest in quitting #preDM: Hba1c now 5.5 Case discussed with collaborating physician Yaz Ardon who reviewed the assessment and plan. Chart, medications, labs, vital signs reviewed. Dictation was accomplished with the use of [employer] voice recognition software, prone to medical misidentifications and grammatical errors. This is unintentional and the practitioner does try to identify and correct these, but some could still be present. Please do not hesitate to contact practitioner for clarification. All quetsions answered to patients satisfaction. Patient verbalized understanding of diagnosis and treatments explained. To call sooner prior to next visit it any questions/concerns arise. 10/05/2024 Nicotine dependence, cigarettes, uncomplicated (ICD-10 - F17.210) # Recent PNA. Diagnosed in Aug 2024, will obtain follow up CXR to ensure clearance # Recent Norovirus: Stomach still is off, taking probiotics. Check BMP. #COPD: Patient is a 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 and has a history of COPD. She is currently prescribed Trelegy for daily maintenance and an albuterol emergency inhaler. She has not been using her Trelegy daily because it is too expensive asking for in office refiils if possible, so she relies on her albuterol inhaler. She uses her albuterol inhaler on average 3 times per week moslty with activity. She also feels that her albuterol inhaler does not work efficiently and she often wastes puffs trying to prime it so she started cleaning the device and notices improvement. She denies any shortness of breath, chest pain, or dizziness. #Hypertension: She is currently prescribed triamterene-HCTZ for blood pressure control. She reports that she takes her medication consistently and experienes no side effects. She should continue to take her medication as prescribed. #Hyperlipidemia: Patient has a history of hyperlipidemia. She is currently prescribed atorvastatin for cholesterol control. Most recent bloodwork was obtained on 09/11/21, at which time she had vey mildly elevated LDL. She was unable to obtian bloodwork before today's appointment because she misplaced her lab slip. She was given new orders and will receive bloodwork for review this afternoon after her appointment. # Tobacco dependence. contiues to smoke 1/2 ppd. no interest in quitting #preDM: Hba1c now 5.5 Case discussed with collaborating physician Yaz Ardon who reviewed the assessment and plan. Chart, medications, labs, vital signs reviewed. Dictation was accomplished with the use of [employer] voice recognition software, prone to medical misidentifications and grammatical errors. This is unintentional and the practitioner does try to identify and correct these, but some could still be present. Please do not hesitate to contact practitioner for clarification. All quetsions answered to patients satisfaction. Patient verbalized understanding of diagnosis and treatments explained. To call sooner prior to next visit it any questions/concerns arise. 10/05/2024 SOB (shortness of breath) (ICD-10 - R06.02) # Recent PNA. Diagnosed in Aug 2024, will obtain follow up CXR to ensure clearance # Recent Norovirus: Stomach still is off, taking probiotics. Check BMP. #COPD: Patient is a 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 and has a history of COPD. She is currently prescribed Trelegy for daily maintenance and an albuterol emergency inhaler. She has not been using her Trelegy daily because it is too expensive asking for in office refiils if possible, so she relies on her albuterol inhaler. She uses her albuterol inhaler on average 3 times per week moslty with activity. She also feels that her albuterol inhaler does not work efficiently and she often wastes puffs trying to prime it so she started cleaning the device and notices improvement. She denies any shortness of breath, chest pain, or dizziness. #Hypertension: She is currently prescribed triamterene-HCTZ for blood pressure control. She reports that she takes her medication consistently and experienes no side effects. She should continue to take her medication as prescribed. #Hyperlipidemia: Patient has a history of hyperlipidemia. She is currently prescribed atorvastatin for cholesterol control. Most recent bloodwork was obtained on 09/11/21, at which time she had vey mildly elevated LDL. She was unable to obtian bloodwork before today's appointment because she misplaced her lab slip. She was given new orders and will receive bloodwork for review this afternoon after her appointment. # Tobacco dependence. contiues to smoke 1/2 ppd. no interest in quitting #preDM: Hba1c now 5.5 Case discussed with collaborating physician Yaz Ardon who reviewed the assessment and plan. Chart, medications, labs, vital signs reviewed. Dictation was accomplished with the use of [employer] voice recognition software, prone to medical misidentifications and grammatical errors. This is unintentional and the practitioner does try to identify and correct these, but some could still be present. Please do not hesitate to contact practitioner for clarification. All quetsions answered to patients satisfaction. Patient verbalized understanding of diagnosis and treatments explained. To call sooner prior to next visit it any questions/concerns arise. Plan Of Treatment Pending Test Test Name Order Date Mammogram 10/23/2021 X ray : Chest with 2 views 10/05/2024 Vitamin B12 05/11/2019 Vitamin D, 1,25 Dihydroxy 05/11/2019 Comp. Metabolic Panel (14) 05/11/2019 CBC 05/11/2019 Bone Density 09/11/2021 Bone Density 01/31/2018 Roberto Machine 10/18/2017 CBC (COMPLETE BLOOD COUNT) 01/31/2018 CBC (COMPLETE BLOOD COUNT) 06/04/2018 COMPREHENSIVE METABOLIC PANEL 06/04/2018 COMPREHENSIVE METABOLIC PANEL 01/31/2018 LIPID PANEL 01/31/2018 LIPID PANEL 06/04/2018 TSH WITH REFLEX TO FT4 01/31/2018 URINALYSIS, COMPLETE 01/31/2018 URINALYSIS, COMPLETE 06/04/2018 LIPID PANEL, STANDARD 04/23/2024 LIPID PANEL, STANDARD 01/18/2025 LIPID PANEL, STANDARD 10/23/2021 COMPREHENSIVE METABOLIC PANEL 04/23/2024 COMPREHENSIVE METABOLIC PANEL 10/23/2021 COMPREHENSIVE METABOLIC PANEL 01/18/2025 CBC (INCLUDES DIFF/PLT) 01/18/2025 CBC (INCLUDES DIFF/PLT) 10/23/2021 CBC (INCLUDES DIFF/PLT) 04/23/2024 URINALYSIS, COMPLETE 01/18/2025 HEMOGLOBIN A1c 07/13/2024 HEMOGLOBIN A1c 01/18/2025 HEMOGLOBIN A1c 04/23/2024 VITAMIN B12 01/18/2025 T4, FREE 04/23/2024 TSH 04/23/2024 T3, FREE 04/23/2024 VITAMIN D,25-OH,TOTAL,IA 04/23/2024 VITAMIN D,25-OH,TOTAL,IA 10/23/2021 VITAMIN D,25-OH,TOTAL,IA 01/18/2025 CT Low Dose Lung Screening 05/09/2021 Future Test Test Name Order Date CBC (COMPLETE BLOOD COUNT) 04/08/2021 COMPREHENSIVE METABOLIC PANEL 04/08/2021 LIPID PANEL 04/08/2021 COMPLETE URINALYSIS 04/08/2021 Next Appt Details Provider Name:MYRON MCCARTY, 09/21/2025 01:00:00 PM, [address], [place], [address], Insurance Providers Payer Name Payer Address Payer Phone Subscriber Number Group Number Insured Name Patient Relationship to Insured Coverage Start Date Coverage End Date Medicare Part B J14 [address] [place] [id number] Delores Cohen Self - patient is the insured 1 [employer] [address] [place] [id number] Delores Cohen Self - patient is the insured 3 Medical (General) History Medical History History ICD Code Chronic obstructive pulmonar y disease (COPD) Stag 1 on spirometry 10/2017. passed 6 minute walk test GERD without esophagitis K21.9 Hyperlipidemia, unspecified E78.5 Osteoporosis without current pathological fracture, unspecified osteoporosis type M81.0 Vertigo R42 Tobacco use Z72.0 Prediabetes (finding) [id number] Surgical History Surgery Date(Month/Year) Appendectomy Breast biopsy tubal ligation cholecystectomy nasal surgery bunionectomy laryngectomy colpoclesis 2017
== END 2025-07-20 13:35 | disposition home or self-care (01) ==
PROVIDERS: PCP Internal Medicine; Visit Provider Orthopaedic Surgery
DX: S62.325A Displaced fracture of shaft of fourth metacarpal bone, left hand, initial encounter for closed fracture (principal); S42.001A Fracture of unspecified part of right clavicle, initial encounter for closed fracture
CPT/HCPCS: 26600; 99204

== ENCOUNTER → 2025-07-20 12:42 | Outpatient (BNV) | payer MEDICARE, OTHER, SELFPAY | PROVIDERS: Visit Provider Radiology Diagnostic Radiology | DX: M79.642 Pain in left hand (principal) | CPT/HCPCS: 73130 ==

== ENCOUNTER 2025-07-22 10:40 | Outpatient (REF) | payer MEDICARE, OTHER, SELFPAY ==
--- NOTE | ~2025-07-22 | XR_ITS ---
EXAMINATION: XR CLAVICLE RIGHT HISTORY: S42.001A - Fracture of unspecified part of right clavicle, initial encounter... COMPARISON: There are no prior studies available for comparison. FINDINGS: Two views of the right clavicle are submitted. Osseous mineralization is normal. No fracture is seen, although the clavicular head is suboptimally visualized due to overlying osseous structures. There is moderate narrowing of the AC joint. A calcification adjacent to the greater tuberosity of the humerus is likely related to the rotator cuff. XR/XR clavicle RT IMPRESSION: No clavicular fracture is identified. Electronically signed by: Sagar Carpenter MD 07/22/2025 11:07 AM [facility]
== END 2025-07-22 10:41 | disposition home or self-care (01) ==
LOC: HO.HOSX 10:40
PROVIDERS: PCP Internal Medicine; Visit Provider Physician Assistant
DX: S42.001A Fracture of unspecified part of right clavicle, initial encounter for closed fracture (principal); W10.8XXA Fall (on) (from) other stairs and steps, initial encounter
CPT/HCPCS: 73000

== ENCOUNTER 2025-07-22 10:40 | Outpatient (AMB) | payer MEDICARE, OTHER, SELFPAY ==
--- NOTE | 2025-07-22 11:11 | MHC.OFFVIS ---
Vital Signs 07/22/25 11:18 Height 5 ft 5 in Weight 134 lb BMI 22.3 Handedness Left Intake Visit Reasons: FC - Right Clavicle Fracture - 07/18/25 Intake Note: Delores is a 79 year old left hand dominant female who presents today for a for a fracture care appointment for her right clavicle fx, DOI 07/18/25. Patient reports she fell down the seller stairs. She states that her pain is anterior and posterior of the clavicle. Patient reports when she is standing and sitting she get some pain in her shoulder. She has tries taking 2 tylenol 500 mg with mild relief. Allergies No Known Allergies (No Known Allergies*) Allergy (Verified 07/22/25 11:17) HPI Comments Details: History of Present Illness The patient is a 79 year old female presenting for evaluation and management of a right mid shaft clavicle fracture. She sustained the injury on the 14th of the month after falling down stairs. The patient developed extensive bruising Down the front of her chest. The patient reports pain and a catching sensation with movement, and notes that wearing a sling is more painful And therefore has discontinued. She has been managing her pain by taking Tylenol regularly. She reports difficulty with activities of daily living, such as putting on her socks. Past medical history is significant for COPD, for which she has two as-needed inhalers, HTN and GERD. She also uses Flonase and takes several supplements, including magnesium and fish oil. She is left-hand dominant. Pain Description - Location: The patient reports pain in the right clavicle and shoulder area. - Quality: She describes the pain as a hurting sensation that sometimes tweaks and feels like something gets caught. - Exacerbating Factors: Pain is worsened by overhead motion and wearing a sling. - Relieving Factors: Taking Tylenol regularly helps manage the pain. - Interference with ADLs: Pain and limited motion interfere with activities such as getting dressed, specifically putting on socks. Results COUNT INCLUDES [facility] Surgical History (Updated 07/20/25 @ 13:03 by Cintia Stone [facility]) History of spinal surgery Hx of cholecystectomy History of bunionectomy History of nasal surgery History of tubal ligation Hx of appendectomy History of cataract surgery Review of Systems Narrative Review of Systems - Musculoskeletal: Reports pain in the clavicle and shoulder area. - Denies broken ribs. - Integumentary: Reports extensive bruising down the arm. - Cardiovascular: Reports swelling in the hand. - Respiratory: Reports a history of COPD. - Gastrointestinal: Reports transient acid reflux prior to the appointment. Const All systems reviewed & are unremarkable except as noted in HPI and below Physical Exam Exam Exam: Physical Exam - Musculoskeletal: forward flexion and abduction lacking roughly 20 degrees with mild pain. Able to reach T12. Pain with cross-body reach. NVI. Vital Signs: BMI result Body Mass Index 22.3 Const General: cooperative, healthy appearing and no acute distress Resp Effort & Inspection: normal respiratory effort and able to speak in complete sentences Psych Appearance: grossly normal Mental Status: mental status grossly normal Attitude: cooperative Assessment & Plan Assessment & Plan (1) Fracture of right clavicle: Code(s): S42.001A - Fracture of unspecified part of right clavicle, initial encounter for closed fracture Category: Medical Plan 1. Clavicle Fracture The patient is a 79-year-old left-hand dominant female with a recent non-displaced right clavicle fracture sustained from a fall. Recent imaging reveals a possible nondisplaced midshaft right clavicle fracture. The plan is for non-operative management. She is advised to limit overhead motion for the next 6-8 weeks to allow for continued bone healing. Pain will be managed with regularly scheduled Tylenol, and she may use heat for comfort as well. Use of a sling is not required, especially as she finds it increases her discomfort. Physical therapy is not indicated at this time as the patient has good range of motion. No follow-up is necessary with me, but she will proceed with her scheduled follow-up with Dr. Choi in August for a left hand fracture that she is currently treating the patient for. Patient will follow up PRN, sooner if needed. Consent: Patient was informed and verbally consented to the use of an ambient scribe for clinic note documentation during this visit. Orders: Orders XR clavicle RT Today S42.001A - Fracture of unspecified part of right clavicle, initial encounter for closed fracture Coding Level of Care Code New Pt Level 4 (14685) Add On Problem Visit Only Diagnoses Fracture of right clavicle S42.001A
[2025-07-22 11:18] VITALS: BMI 22.3
--- OUTSIDE RECORDS SUMMARY | 2025-07-22 13:37 | XMS_ITS | Patient Health Record ---
Author Organization [facility] [address] Address [address] [place] [address] Care Team Providers Care Economics Instructor Name Role Phone ARDONLIAM Primary Care Provider [phone] MYRON MCCARTY Unavailable [phone] Allergies Allergen (clinical drug ingredient) Drug/Non Drug Allergy documented on EMR Reaction Allergy Type Onset Date Status Ground Mold (uncoded) Unknown Allergy Active Results Component Value Reference Range Flag Notes Comp. Metabolic Panel (14)-3 [id number] Reviewed date:06/22/2025 09:47:38 AM Interpretation: Performing Lab:[facility], [address] [facility], [place], Phone - [phone], Director - Leilani Notes/Report: Glucose 109 70-99 mg/dL H BUN [...] 0-40 IU/L ALT (SGPT) 19 0-32 IU/L Lipid Panel-[id number] Reviewed date:06/22/2025 09:47:38 AM Interpretation: Performing Lab:[facility], [address] [facility], Phone - [phone], Director - Leilani Notes/Report: Cholesterol, Total 164 100-199 mg/dL Triglycerides 80 0-149 mg/dL HDL Cholesterol 67 >39 mg/dL VLDL Cholesterol Pradip 15 5-40 mg/dL LDL Chol Calc ([facility]) 82 0-99 mg/dL Vitamin D, 34-[id number] Reviewed date:06/22/2025 09:47:38 AM Interpretation: Performing Lab:[facility], [address] [facility], Phone - [phone], Director - Leilani Notes/Report: Vitamin D, 25-Hydroxy 66.7 30.0-100.0 ng/mL Vitamin D deficiency has been defined by the [place] of Medicine and an Endocrine Society practice guideline as a level of serum 25-OH vitamin D less than 20 ng/mL (1,2). The Endocrine Society went on to further define vitamin D insufficiency as a level between 21 and 29 ng/mL (2). 1. IOM ([place] of Medicine). 2010. Dietary reference intakes for calcium and D. [place]: The National Academies Press. 2. Sidney MF, Caesar [place], Paloma GREEN, et al. Evaluation, treatment, and prevention of vitamin D deficiency: an Endocrine Society clinical practice guideline. JCEM. 2010; 96(7):1911-30. CBC With Differential/Platel et-[id number] Reviewed date:06/22/2025 09:47:38 AM Interpretation: Performing Lab:[facility], [address] [facility], Phone - [phone], Director - Leilani Notes/Report: WBC 5.7 3.4-10.8 [...] % Immature Grans (Abs) 0.0 0.0-0.1 x10E3/uL Urinalysis, Complete-[id number] Reviewed date:06/22/2025 09:47:38 AM Interpretation: Performing Lab:[facility], [address] [place] [address], Phone - [phone], Director - MDJodry Notes/Report: Specific [place] 1.022 1.005-1.030 pH 5.5 5.0-7.5 Urine-Color Yellow [...] seen /lpf Bacteria None seen None seen/Few Vitamin [id number] Reviewed date:06/22/2025 09:47:38 AM Interpretation: Performing Lab:[facility], [facility], [place], Phone - [phone], Director - Jodry Notes/Report: Vitamin B12 115 221-3610 pg/mL Hemoglobin X1x-[id number] Reviewed date:06/22/2025 09:47:38 AM Interpretation: Performing Lab:[facility], [facility], [place], Phone - [phone], Director - Jodry Notes/Report: Hemoglobin A1c 5.8 4.8-5.6 % H . Prediabetes: 5.7 - 6.4 Diabetes: >6.4 Glycemic control for adults with diabetes: <7.0 Reason For Referral No Information Medications Medication SIG (Take, Route, Frequency, Duration) Notes Start Date End Date Status Aris Ellipta 100-62.5-25 MCG/INH Aerosol Powder Breath Activated 1 [...] every 4 hrs; Duration: 30 days Active Omeprazole 20 MG Capsule Delayed Release TAKE 1 CAPSULE BY MOUTH EVERY DAY FOR 90 DAYS; Duration: 90 Active Atorvastatin Calcium 40 MG Tablet TAKE 1 TABLET BY MOUTH EVERY DAY; Duration: 90 Active Fluticasone Propionate 50 MCG/ACT Suspension INSTILL 2 SPRAYS INTO EACH NOSTRIL ONCE A DAY; Duration: 90 Active Vitamin D (Ergocalciferol) 30829 UNIT Capsule 2 capsule Orally daily 10,000 [...] quit smoking Tob: 1 PPD ETOH: None [employer]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 and refusing to quit smoking Tob: 1 PPD ETOH: None [place]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 and refusing to quit smoking Tob: 1 PPD ETOH: None [place] [employer] Resides with 52 year old son (disabled due to mental illness) patient is a 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 and refusing to quit smoking Tob: 1 PPD ETOH: None 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 with 52 year [...] quit smoking Tob: 1 PPD ETOH: None 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 and refusing to quit smoking Tob: 1 PPD ETOH: None 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 with 52 year old son (disabled due to mental illness) patient is a 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 and refusing to quit smoking Tob: 1 PPD ETOH: None 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 with 52 year old son (disabled due to mental illness) Problems Problem Type SNOMED Code ICD Code Onset Dates Problem Status W/U Status Risk Notes Problem Vitamin B>12< deficiency anaemia (45759069) Vitamin B12 deficiency anemia, unspecified (D51.9) Active confirmed Problem Vitamin D deficiency (36213504) Vitamin D deficiency, unspecified (E55.9) Active confirmed Problem Hyperlipidemia (81804207) Hyperlipidemia, unspecified (E78.5) Active confirmed Problem Tobacco user (226726858) Nicotine dependence, cigarettes, uncomplicated (F17.210) Active confirmed Problem Essential hypertensi on (43139241) Essential (primary) hypertension (I10) Active confirmed Problem Atherosclerotic hear t disease of [place] coronary artery without angina pectoris (543146123492289) Atherosclerotic heart disease of [place] coronary artery without angina pectoris (I25.10) Active confirmed Problem Gastro-esophageal reflux disease with esophagitis (894100856) Gastro-esophageal reflux disease with esophagitis (K21.0) Active confirmed Problem Dysuria (20215469) Dysuria (R30.0) Active confi rmed Problem Adult health examination (706518427) Encounter for general adult medical examination without abnormal findings (Z00.00) Active confirmed Problem Pure hypercholesterolemia (265721463) Pure hypercholesterole daniel, unspecified (E78.00) Active confirmed Problem Prediabetes (771403908) Prediabetes (R73.03) Active confirmed Problem Acute exacerbation o f chronic obstructive airways disease (477936116) Chronic obstructive pulmonary disease with acute exacerbation (J44.1) Active confirmed Problem Hyperlipidaemia (62770555) Hyperlipidemia, unspecified hyperlipidemia type (E78.5) Active confirmed Problem Hypothyroidism (50320532) Hypothyroidism, unspecified type (E03.9) Active confirmed Problem Dyspnea (204992029) SOB (shortne ss of breath) (R06.02) Active confirmed Problem Vitamin D deficiency (92859147) Vitamin D deficiency (E55.9) Active confirmed Problem Type II diabetes mellitus without complication (907208088) Type 2 diabetes mellitus without complication, unspecified whether intermediate insulin use (E11.9) Active confirmed Problem Smoker (13382606) Smoker (F17.200) Active confi rmed Problem COPD - Chronic obstructive pulmonary disease (30879145) Chronic obstructive pulmonary disease, unspecified COPD type (J44.9) Active confirmed Problem Age-related osteoporosis (626463387) Osteoporosis without current pathological fracture, unspecified osteoporosis type (M81.0) Active confirmed Problem Gastroesophageal reflux disease (518808378) GERD without esophagitis (K21.9) Active confirmed Problem Vitamin D deficiency (43996685) Vitamin D3 deficiency (E55.9) Active confirmed Problem Hyperlipidemia (63250752) Hyperlipidemia (E78.5) Active confirmed Vital Signs Heart Rate 80 /min 01/18/2025 Oximetry 92 % 01/18/2025 Blood pressure diastolic 64 mm Hg 01/18/2025 Height 64 in 01/18/2025 Blood pressure systolic 112 mm Hg 01/18/2025 Weight 131.8 lbs 01/18/2025 BMI 22.62 kg/m2 01/18/2025 Encounters Encounter Location Date Provider Diagnosis [facility] [address] [place] [address] 10/05/2024 MYRON MCCARTY Essential (primary) hypertension I10 ; Pneumonia due to infectious organism, unspecified laterality, unspecified part of lung J18.9 ; Pure hypercholesterolemia, unspecified E78.00 ; Chronic obstructive pulmonary disease with acute exacerbation J44.1 ; Atherosclerotic heart disease of [place] coronary artery without angina pectoris I25.10 ; Nicotine dependence, cigarettes, uncomplicated F17.210 and SOB (shortness of breath) R06.[address] [facility] [address] [place] [address] 01/18/2025 MYRON MCCARTY Essential (primary) hypertension I10 ; Chronic obstructive pulmonary disease with acute exacerbation J44.1 ; Atherosclerotic heart disease of [place] coronary artery without angina pectoris I25.10 ; Nicotine dependence, cigarettes, uncomplicated F17.210 and Encounter for examination of blood pressure without abnormal findings Z01.30 [facility] [address] [place] [address] 11/02/2024 MYRON MCCARTY [facility] [address] [place] [address] 12/14/2024 LIAM ARDON [facility] [address] [place] [address] 12/14/2024 MYRON MCCARTY [facility] [address] [place] [address] 07/19/2025 LIAM ARDON [facility] [address] [place] [address] 07/19/2025 MYRON MCCARTY [facility] [address] [place] [address] 07/20/2025 MYRON MCCARTY Assessments Encounter Date Diagnosis (ICD [...] Dictation was accomplished with the use of Springpad voice recognition software, prone to medical misidentifications [...] Dictation was accomplished with the use of Springpad voice recognition software, prone to medical misidentifications [...] Dictation was accomplished with the use of Springpad voice recognition software, prone to medical misidentifications [...] Dictation was accomplished with the use of Springpad voice recognition software, prone to medical misidentifications [...] questions/concerns arise. 01/18/2025 Atherosclerotic heart disease of [place] coronary artery without angina pectoris (ICD-10 - [...] Dictation was accomplished with the use of Springpad voice recognition software, prone to medical misidentifications [...] Dictation was accomplished with the use of Springpad voice recognition software, prone to medical misidentifications [...] Dictation was accomplished with the use of Springpad voice recognition software, prone to medical misidentifications [...] Dictation was accomplished with the use of Springpad voice recognition software, prone to medical misidentifications [...] Dictation was accomplished with the use of Springpad voice recognition software, prone to medical misidentifications [...] questions/concerns arise. 10/05/2024 Atherosclerotic heart disease of [place] coronary artery without angina pectoris (ICD-10 - [...] Dictation was accomplished with the use of Springpad voice recognition software, prone to medical misidentifications [...] Dictation was accomplished with the use of Springpad voice recognition software, prone to medical misidentifications [...] Dictation was accomplished with the use of Springpad voice recognition software, prone to medical misidentifications [...] Panel (14) 05/11/2019 CBC 05/11/2019 Bone Density 01/31/2018 Bone Density 09/11/2021 Roberto Machine 10/18/2017 CBC (COMPLETE BLOOD COUNT) 06/04/2018 CBC (COMPLETE BLOOD COUNT) 01/31/2018 COMPREHENSIVE METABOLIC PANEL 01/31/2018 COMPREHENSIVE METABOLIC PANEL 06/04/2018 LIPID PANEL 06/04/2018 LIPID PANEL 01/31/2018 TSH WITH REFLEX TO FT4 01/31/2018 URINALYSIS, COMPLETE 01/31/2018 URINALYSIS, COMPLETE 06/04/2018 LIPID PANEL, STANDARD 04/23/2024 LIPID PANEL, STANDARD 01/18/2025 LIPID PANEL, STANDARD 10/23/2021 COMPREHENSIVE METABOLIC PANEL 10/23/2021 COMPREHENSIVE METABOLIC PANEL 04/23/2024 COMPREHENSIVE METABOLIC PANEL 01/18/2025 CBC (INCLUDES DIFF/PLT) 01/18/2025 CBC (INCLUDES DIFF/PLT) 04/23/2024 CBC (INCLUDES DIFF/PLT) 10/23/2021 URINALYSIS, COMPLETE 01/18/2025 HEMOGLOBIN A1c 01/18/2025 HEMOGLOBIN A1c 07/13/2024 HEMOGLOBIN A1c 04/23/2024 VITAMIN B12 01/18/2025 T4, FREE 04/23/2024 TSH 04/23/2024 T3, FREE 04/23/2024 VITAMIN D,25-OH,TOTAL,IA 04/23/2024 VITAMIN D,25-OH,TOTAL,IA 10/23/2021 VITAMIN D,25-OH,TOTAL,IA 01/18/2025 CT Low Dose Lung Screening 05/09/2021 Future Test Test Name Order Date CBC (COMPLETE BLOOD COUNT) 04/08/2021 COMPREHENSIVE METABOLIC PANEL 04/08/2021 LIPID PANEL 04/08/2021 COMPLETE URINALYSIS 04/08/2021 Next Appt Details Provider Name:MYRON BIBIANA, 09/21/2025 01:00:00 PM, [address], [place], [address], Insurance Providers Payer Name Payer Address Payer Phone Subscriber Number Group Number Insured Name Patient Relationship to Insured Coverage Start Date Coverage End Date Medicare Part B J14 [address] [place] [id number] [phone] [id number] Delores Cohen Self - patient is the insured 1 [employer] [address] [place] [address] [id number] Delores Cohen Self - patient is the insured 3 Medical (General) History Medical History History ICD Code Chronic obstructive pulmonar y disease (COPD) Stag 1 on spirometry 10/2017. passed 6 minute walk test GERD without esophagitis K21.9 Hyperlipidemia, unspecified E78.5 Osteoporosis without current pathological fracture, unspecified osteoporosis type M81.0 Vertigo R42 Tobacco use Z72.0 Prediabetes (finding) [id number] Surgical History Surgery Date(Month/Year) Appendectomy Breast biopsy tubal ligation cholecystectomy nasal surgery bunionectomy laryngectomy colpoclesis 2017
--- OUTSIDE RECORDS SUMMARY | 2025-07-22 13:37 | XMS_ITS | Patient Health Record ---
Author Organization [facility] Address [address] [place] [address] Care Team Providers Care Fire Apparatus Engineer Name Role Phone DANA MELGOZA Primary Care Provider Sagar Reed Unavailable [phone] Reason For Referral No Information Medications Medication [...] Status Risk Notes Problem Colon cancer screening (694936870) Colon cancer screening (V76.51) Active confirmed Problem Chronic antral gastritis (20033418) Chronic antral gastritis (535.10) Active confirmed Plan Of Treatment Future Test Test Name Order Date COLONOSCOPY 08/07/2012 Insurance Providers Payer Name Payer Address Payer Phone Subscriber Number Group Number Insured Name Patient Relationship to Insured Coverage Start Date Coverage End Date MEDICARE OF [place] [address] [place] [address] [id number] EVA CORDON Self - patient is the insured [facility] [address] [place] [address] [phone] [id number] EVA CORDON Self - patient is the insured Medical (General) History Medical History History ICD Code 5-3-2009 upperendoscopy-inte stinal metaplasia, but no adenomatous changes as had been seen in 1997; 2009 biopsies neg. for Hpylori gastritis with H. pylori-s/p antibiotic treatment hiatal hernia Denies PR,DM,CVA,Lung disease,renal dise ase HTN Hyperlipidemia Surgical History Surgery Date(Month/Year) uterine suspension appendectomy tubal ligation cholecystectomy L3 disc surgery
== END 2025-07-22 11:42 | disposition home or self-care (01) ==
LOC: HO.HOS 10:40
PROVIDERS: PCP Internal Medicine; Visit Provider Physician Assistant
DX: S42.001A Fracture of unspecified part of right clavicle, initial encounter for closed fracture (principal)
CPT/HCPCS: 99214; G2211

== ENCOUNTER → 2025-07-22 10:47 | Outpatient (BNV) | payer MEDICARE, OTHER, SELFPAY | PROVIDERS: PCP Internal Medicine; Visit Provider Radiology Diagnostic Radiology | DX: S42.001A Fracture of unspecified part of right clavicle, initial encounter for closed fracture (principal) | CPT/HCPCS: 73000 ==